=== PATIENT | female | born 2000 | race Caucasian/White ===

== ENCOUNTER 2018-03-10 14:00 | Emergency (ER) | payer MEDICAID ==
[~2018-03-10] VITALS: Ht 152.4 cm; Wt 59.0 kg
--- NOTE | 2018-03-10 14:10 | NUR ---
Patient to ER bed 06 for evaluation. Side rails up. Report given to GILBERTO.
[2018-03-10 14:11] VITALS: BP_SYST 109
--- NOTE | 2018-03-10 14:15 | NUR ---
Patient arrived via POV, AAOx4, and ambulatory with steady gait. Patient fell and received 1 staple on last Wednesday. Patient arrived for staple removal. No evidence of infection. No drainage, redness, or swelling.
--- NOTE | 2018-03-10 14:16 | NUR ---
ER at bedside examining patient. Provided with staple remover.
[2018-03-10 14:30] VITALS: BP_SYST 109
--- NOTE | 2018-03-10 14:30 | NUR ---
Patient given written and verbal discharge instructions and verbalizes understanding. ER MD discussed with patient the results and treatment provided. Patient in stable condition. ID arm band removed. No Rx given. Patient educated on pain management and to follow up with PMD. Pain Scale 0/10. Opportunity for questions provided and answered.
== END 2018-03-10 14:30 | disposition home or self-care (01) ==
LOC: SED 14:00
DX: Z48.02 Encounter for removal of sutures (principal)
CPT/HCPCS: 99281